=== PATIENT | female | born 1955 | race Caucasian/White ===

== ENCOUNTER 2016-11-19 13:16 | Day surgery (SDC) | payer OTHER ==
[~2016-11-19] VITALS: Ht 172.7 cm; Wt 74.8 kg
[~2016-11-19 13:16] MED LIST: 0.9% Sodium Chloride 1,000 ML IV SCH; BUPR75TA10 PO; ESOM40CA41 PO; GABA-502 PO; KLO1T PO; QUET100T PO; SERT100T9 PO; Sodium Chloride LOK Flush 10 mL Syringe IV PRN; THYR90TA PO; fentaNYL-PF 50 mCg/mL 2 mL Inj IVPUSH PRN
[2016-11-19 14:07] VITALS: BP 121/70; PULSE 57; O2SAT 97
--- NOTE | 2016-11-19 15:38 | PCM.ENDEGD ---
EGD Date of Service: Nov 19, 2016 Physician Adalid Corea MD Pre Procedure Diagnosis: Reflux Post Procedure Dx & Findings: Possible Araya's gastritis possible pancreatic rest fundic polyps Procedure Esophagogastroduodenoscopy PROCEDURE IN DETAIL: After proper sedation, Olympus video endoscope was inserted into patient's mouth and esophagus was successfully intubated. Scope introduced esophagus. Esophagus showed normal shiny whitish mucosa consistent with squamous cell component. Z line was at 40 cm from the incisors. There was 2 cm tongue of salmon-colored mucosa. Narrow banding done. No ulcer mass erosion nodule noted. 4 quadrant biopsies on every 2 cm. Scope further advanced to the stomach. In the antrum, there was a 1 cm polypoid structure looks like a pancreatic rest. Biopsies done. Patient had multiple 5 mm or less fundic polyps. Sampling biopsies done. In the antrum, there was some redness and edema consistent with gastritis. Biopsies done. Cardia fundus body antrum pylorus were all visualized. Retroflexion was done. Stomach was easily inflated and deflatable using air. Scope further events to the distal duodenum. Duodenum revealed normal villous structures with normal appearing folds without any mass ulcer erosion. Impression Possible Araya's gastritis possible pancreatic rest fundic polyps Recommendation Avoid biopsy Follow-up with GI clinic with the physician's business office assistant Presedation Assessment Risks and Benefits Informed consent was obtained from the patient after all risks and benefits including but not limited to drug reaction, infection, pain, bleeding, perforation, as well as alternatives were discussed. Patient monitoring Continuous pulse oximetry, cardiac monitoring, blood pressure monitoring, IV access, and oxygen at 2L per nasal cannula. Periprocedural Fentanyl: Fentanyl 175mcg Incrementally Midazolam: Midazolam 10mg Incrementally Complications There were no periprocedural complications identified. Post Procedure Plan Post Procedure Recommendations 1. Restrict activities today. 2. Resume normal activities in the morning. 3. Resume medications. 4. GERD behavioral modification: - Avoid fatty, acidic, spicy, large meals - Do not lie down after meals - Do not eat or drink anything for at least 2 1/2 hours before going to bed at night - Discontinue tobacco and alcohol - Decrease or avoid caffeine - Avoid chocolate and mints - Decrease weight - Avoid aspirin and non steroidal anti-inflammatory agents (NSAID) such as Aleve, Advil, Mobic, Naproxen, Ibuprofen, etc 5. Add proton pump inhibitor. Take 30 minutes before 1st meal of the day. 6. Patient informed of normal post procedure side effects as bloating, drowsiness, blood streaking in the stool 7. If gastric biopsy reveal H.pylori, continue with appropriate treatment 8. If small bowel biopsy reveals celiac, continue with appropriate treatment 9. Please don't hesitate to call me with any questions Adalid Corea MD Nov 19, 2016 15:38
[2016-11-19 15:40] VITALS: BP 110/60; PULSE 67; RESP 14; O2SAT 97
[2016-11-19 15:52] VITALS: BP 115/69; PULSE 57; RESP 16; O2SAT 97
--- NOTE | 2016-11-26 09:33 | PATH ---
SURGICAL PATHOLOGY Attending Physician:Adalid Corea M.D. CASE STATUS: Signed Out PATIENT NAME: YVONNE CONNER PID: [id number] : 1955 DATE COLLECTED:11/19/2016 00:00 SPECIMEN: 1: Gastric, Biopsy 2: Gastric, Biopsy 3: Esophagus, Biopsy 4: Stomach, Polyp, Biopsy CLINICAL HISTORY: 1). GASTRIC BIOPSY - TEST FOR H.PYLORI 2). PANCREATIC REST BIOPSY 3). DISTAL ESOPHAGUS - R/O BARRETTS 4). GASTRIC POLYP FINAL DIAGNOSIS: 1.GASTRIC BIOPSY: GASTRIC ANTRAL AND BODY MUCOSA WITH MILD REACTIVE GASTROPATHY. Negative for intestinal metaplasia. Negative for Helicobacter organisms by immunohistochemical stains. Negative for dysplasia and malignancy. 2.PANCREATIC REST BIOPSY: MILD REACTIVE GASTROPATHY, ANTRAL MUCOSA. Negative for intestinal metaplasia. No pancreatic glands identified, multiple microscopic levels examined. Negative for dysplasia and malignancy. 3.DISTAL ESOPHAGUS: COLUMNAR MUCOSA WITH NO DIAGNOSTIC ALTERATIONS. Negative for intestinal/Araya' s metaplasia. Negative for dysplasia and malignancy. 4.GASTRIC POLYP: FUNDIC GLAND POLYP. Negative for intestinal metaplasia. Negative for Helicobacter organisms. Negative for dysplasia and malignancy. ICD10 K29.70 K31.7 GROSS DESCRIPTION: Received four formalin-filled containers, each labeled with the patient' s name: 1. In a container labeled "1. Gastric", the specimen consists of a 0.3 x 0.2 x 0.2 cm portion of tissue, which is entirely submitted in cassette 1A. 2. In a container labeled "2. Pancreatic nest", the specimen consists of a 0.3 x 0.3 x 0.2 cm portion of tissue, which is entirely submitted in cassette 2A. 3. In a container labeled "3. Distal esophagus", the specimen consists of two portions of tissue which aggregate to 0.3 x 0.3 x 0.2 cm. The specimen is entirely submitted in cassette 3A. 4. In a container labeled "gastric polyp", the specimen consists of three portions of tissue which aggregate to 0.3 x 0.3 x 0.2 cm. The specimen is entirely submitted in cassette 4A. ([id number]) MICRO DESCRIPTION: 1. Sections are of gastric antral and body mucosa with histologic features of reactive gastropathy. No intestinal metaplasia is identified. Immunohistochemical stains for Helicobacter pylori are performed to further evaluate for the presence of Helicobacter organisms. The patient tissue is stained with monoclonal antibody to Helicobacter pylori (SP48). Positive and negative controls stain appropriately. Result: The patient tissue is negative for Helicobacter staining. Interpretation: The gastric mucosa is negative for Helicobacter pylori by immunohistochemical stains. This test was developed and its performance characteristics determined by [facility]. It has not been cleared or approved by the [place]. Food and Drug Administration. The FDA has determined that such clearance or approval is not necessary. This test is used for clinical purposes. It should not be regarded as investigational or for research. 2. Multiple microscopic levels examined. ICD-9 CODES: CPT CODES: 1: 06112, 90315 2: 85351 3: 73486 4: 75183 Electronically Signed Out Christine Benavidez MD [facility] [address], [place] [address] Technical component performed at [facility], [facility] [address], [place], [address]
== END 2016-11-19 23:59 | disposition home or self-care (01) ==
LOC: END 13:16
PROVIDERS: ATTEND Internal Medicine
DX: K29.70 Gastritis, unspecified, without bleeding (principal); K31.7 Polyp of stomach and duodenum; E78.00 Pure hypercholesterolemia, unspecified; E03.9 Hypothyroidism, unspecified; K21.9 Gastro-esophageal reflux disease without esophagitis
CPT/HCPCS: 43239; 99153; G0500; J2250; J3010; J7030